=== PATIENT | female | born 1995 | race Caucasian/White ===

== ENCOUNTER 2016-11-19 23:26 | Emergency (ER) | payer SELFPAY ==
--- NOTE | 2016-11-19 23:52 | ED.PDOC ---
History of Present Illness - General Chief Complaint: Abdominal Pain Stated Complaint: RLQ pain, N/V, pain c urination Time Seen by Provider: 11/19/16 23:46 Information Source: patient Exam Limitations: no limitations - History of Present Illness Initial Comments: PT REPORTS SUDDEN ONSET OF DYSURIA AND FREQUENCY ABOUT 5 HOURS AGO. PT THEN REPORTS SUDDEN ONSET OF RLQ ABD PAIN APPROXIMATELY 1 HOUR AGO. PT REPORTS SYMPTOMS ARE ASSOCIATED WITH NAUSEA AND VOMITING. DENIES FEVER/CHILLS. Abdominal Pain Onset Location: RLQ Pain Radiation: flank Quality: severe, steady Timing/Duration: 1 hour Improving Factors: nothing Worsening Factors: nothing Associated Symptoms: nausea/vomiting Review of Systems - Review of Systems Constitutional: Denies: chills, fever EENTM: Denies: ear pain, nose congestion Respiratory: Denies: cough, short of breath Cardiology: Denies: chest pain, palpitations Gastrointestinal/Abdominal: States: see HPI, abdominal pain, nausea, vomiting Genitourinary: States: see HPI, dysuria, frequency Musculoskeletal: Denies: back pain, joint pain Skin: Denies: change in color, dryness Neurological: States: no symptoms reported Endocrine: States: no symptoms reported Past Medical History (General) - Patient Medical History Hx Seizures: No Hx Stroke: No Hx Dementia: No Hx Asthma: No Hx of COPD: No Hx Cardiac Disorders: No Hx Congestive Heart Failure: No Hx Pacemaker: No Hx Hypertension: No Hx Thyroid Disease: No Hx Diabetes: No Hx Gastroesophageal Reflux: No Hx Renal Disease: No Hx Cancer: No Hx of HIV: No Hx Hepatitis C: No Hx MRSA: No - Vaccination History Hx Tetanus, Diphtheria Vaccination: Yes Hx Influenza Vaccination: Yes Hx Pneumococcal Vaccination: No - Social History Hx Tobacco Use: No Hx Alcohol Use: No Hx Substance Use: No Hx Substance Use Treatment: No Hx Depression: No - Female History Hx Last Menstrual Period: 11/18/13 Patient : No Family Medical History - Family History Mother Family History: Unknown Living Status: Still Living Physical Exam - Physical Exam General Appearance: Alert, Obvious distress Respiratory: normal breath sounds, no respiratory distress, no accessory muscle use Cardiovascular/Chest: regular rate, rhythm, no murmur Gastrointestinal/Abdominal: soft, tenderness - B/L LOWR QUADRANTS AND SUPRAPUBIC REGION. Progress - Progress Progress: 11/20/16 01:09 PREVIOUS RECORDS REVIEWED REVEALING PTS LAST VISIT TO ED WAS 03/29 FOR UTI 11/20/16 02:03 PT RESTING COMFORTABLY, REPORTS SIGNIFICANT IMPROVEMENT IN PAIN AFTER TORADOL AND MORPHINE. LABS AND CT FINDINGS DISCUSSED. - Results/Orders Results/Orders: 11/19/16 23:47 IV Care:Saline Lock per Protoc QSHIFT Sodium Chloride 0.9% (Flush) [Saline Flush Syringe] 10 ml IV PRN PRN Sodium Chloride 0.9% 1000ML [Ns 1000 ml] 1,000 ml IVS .QD 11/20/16 00:17 URINE CULTURE W/COLONY COUNT Stat Laboratory Results - last 24 hr 11/19/16 11/19/16 11/19/16 00:00 00:00 00:00 WBC 10.8 RBC 4.50 Hgb 13.3 Hct 39.8 MCV 88.3 MCH 29.6 MCHC 33.5 RDW 13.1 Plt Count 257 MPV 9.4 Absolute Neuts (auto) 6.70 Absolute Lymphs (auto) 3.00 Absolute Monos (auto) 1.00 H Absolute Eos (auto) 0.10 Absolute Basos (auto) 0.10 Neutrophils % 61.8 Lymphocytes % 27.5 Monocytes % 9.2 H Eosinophils % 0.9 L Basophils % 0.6 Sodium 136 Potassium 3.1 L Chloride 102 Carbon Dioxide 26 Anion Gap 11.1 L BUN 13 Creatinine 0.88 BUN/Creatinine Ratio 14.8 Random Glucose 94 Serum Osmolality 271.8 L Calcium 9.4 Total Bilirubin 0.5 Direct Bilirubin < 0.1 Indirect Bilirubin 0.4 AST 22 ALT 16 Alkaline Phosphatase 73 L Serum Total Protein 8.1 Albumin 4.5 Serum HCG, Qual Negative Urine Color Urine Appearance Urine pH Ur Specific [place] Urine Protein Urine Glucose (UA) Urine Ketones Urine Blood Urine Nitrite Urine Bilirubin Urine Urobilinogen Ur Leukocyte Esterase Urine RBC Urine WBC Ur Epithelial Cells Urine Bacteria 11/20/16 00:17 WBC RBC Hgb Hct MCV MCH MCHC RDW Plt Count MPV Absolute Neuts (auto) Absolute Lymphs (auto) Absolute Monos (auto) Absolute Eos (auto) Absolute Basos (auto) Neutrophils % Lymphocytes % Monocytes % Eosinophils % Basophils % Sodium Potassium Chloride Carbon Dioxide Anion Gap BUN Creatinine BUN/Creatinine Ratio Random Glucose Serum Osmolality Calcium Total Bilirubin Direct Bilirubin Indirect Bilirubin AST ALT Alkaline Phosphatase Serum Total Protein Albumin Serum HCG, Qual Urine Color [place] H Urine Appearance Clear Urine pH Ur Specific [place] Urine Protein Urine Glucose (UA) Urine Ketones Urine Blood Urine Nitrite Urine Bilirubin Urine Urobilinogen Ur Leukocyte Esterase Urine RBC >50 H Urine WBC 0-1 Ur Epithelial Cells 5-10 Urine Bacteria 2+ H - EKG/XRAY/CT CT: 3MM RIGHT UVJ STONE PER RAD. Departure - Departure Clinical Impression: Ureteral stone with hydronephrosis, Nausea & vomiting Time of Disposition: 02:05 Disposition: Discharge to Home or Self Care Condition: Good Departure Forms: ED Discharge - Pt. Copy, Patient Portal Self Enrollment Instructions: DI for Kidney Stones Referrals: Gonzalo Gallegos MD [Primary Care Provider] - 1-5 Days Prescriptions: Acetaminophen W/ Codeine [Tylenol W/ CODEINE #3] 1 ea PO Q4HR PRN #24 PRN Reason: Pain Ibuprofen 800 mg PO Q8HR PRN #30 tab PRN Reason: Pain Promethazine Tab [Phenergan Tablet] 25 mg PO Q6H PRN #15 tab PRN Reason: Nausea/Vomiting Tamsulosin HCl [Flomax] 0.4 mg PO DAILY #7 cap Home Medications: Ambulatory Orders Ibuprofen [Advil] 200 mg PO PRN 11/19/16 Acetaminophen W/ Codeine [Tylenol W/ CODEINE #3] 1 ea PO Q4HR PRN #24 11/20/16 Ibuprofen 800 mg PO Q8HR PRN #30 tab 11/20/16 Promethazine Tab [Phenergan Tablet] 25 mg PO Q6H PRN #15 tab 11/20/16 Tamsulosin HCl [Flomax] 0.4 mg PO DAILY #7 cap 11/20/16
[2016-11-20] MEDS: SODIUM CHLORIDE 0.9% (FLUSH) 10 ML SYG IV PRN (00:02)
[2016-11-20] MEDS: SODIUM CHLORIDE 0.9% 1000ML 1,000 ML IVS PRN (00:03)
[2016-11-20] MEDS: KETOROLAC TROMETHAMINE INJ 30 MG/ML VIAL IV ONE (00:04)
[2016-11-20] MEDS: MORPHINE SULFATE INJ 10 MG/ML VIAL IV ONE (00:04)
[2016-11-20] MEDS: ONDANSETRON INJ 4 MG/2 ML VIAL IV ONE (00:04)
[2016-11-20 00:41] VITALS: O2SAT 98
--- NOTE | 2016-11-20 01:42 | CT ---
EXAM: CT abdomen and pelvis without contrast. INDICATION: Abdominal pain, acute. TECHNIQUE: Contiguous axial CT images of the abdomen and pelvis. Intravenous contrast: Absent. Oral contrast: Absent. Protocol: Renal stone. DLP 650 mGy-cm. This exam was performed according to our departmental dose-optimization program, which includes automated exposure control, adjustment of the mA and/or kV according to patient size and/or use of iterative reconstruction technique. COMPARISON: None. FINDINGS: Lower chest: Partially imaged. Lung bases: Unremarkable. Cardiac apex: Unremarkable. Solid abdominal viscera: Limited by lack of intravenous contrast. Liver: Unremarkable. Gallbladder: Unremarkable. Pancreas: Unremarkable. Spleen: Unremarkable. Adrenal glands: Unremarkable. Right kidney: There is a 3 mm stone near the right UVJ causing mild hydroureter and hydronephrosis. There are additional stones within the right right kidney measuring up to 3 mm. Left kidney: There is a 2 mm nonobstructing stone along the upper pole. There is no hydronephrosis or hydroureter. Urinary bladder: Unremarkable. Abdominal aorta: Unremarkable. Peritoneal: Free fluid: None. Free air: None. Other: No pathologic sized lymph nodes in the upper abdomen. Bowel: Stomach: Unremarkable. Small bowel: Unremarkable. Appendix: Measures up to 7 mm in diameter with no definite surrounding inflammatory changes. Colon: Unremarkable. Rectum: Unremarkable. Uterus: Unremarkable. Bones: Unremarkable. IMPRESSION: 3 mm stone near the right UVJ causing mild hydroureter and hydronephrosis. Additional bilateral renal stones. No hydronephrosis or hydroureter on the left. The appendix is at the upper limit of normal in diameter with no definite surrounding inflammatory changes. Electronically signed by: Tray George MD 11/20/2016 1:42 AM CDT Workstation: [id number]
[2016-11-20] MEDS: PROMETHAZINE TAB (ER DISP) 25 MG TAB PO ONE (02:16)
[2016-11-20] MEDS: HYDROCOD/APAP 7.5/325 (ER DISP) #3 TAB PO ONE (02:16)
[2016-11-20 02:26] VITALS: BP 131/73
[2016-11-20 02:28] VITALS: TEMP 98.7
== END 2016-11-20 02:29 | disposition home or self-care (01) ==
LOC: ER 23:26
DX: N13.2 Hydronephrosis with renal and ureteral calculous obstruction (principal)
CPT/HCPCS: 36415; 74176; 80048; 80076; 81001; 84703; 85025; 87086; J1885; J2270; J2405; J7030; Q0169